=== PATIENT | male | born 1975 | race Caucasian/White ===

== ENCOUNTER 2017-05-08 06:39 | Emergency (ER) | payer OTHER ==
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
[2017-05-08] MEDS ORDERED: Mupirocin Oint 22 GM Tube TOP ONE (07:59)
== END 2017-05-08 08:13 | disposition home or self-care (01) ==
LOC: DL.ED 06:39
DX: S40.271A Other superficial bite of right shoulder, initial encounter (principal); Z88.0 Allergy status to penicillin; W50.3XXA Accidental bite by another person, initial encounter; Y92.89 Other specified places as the place of occurrence of the external cause
CPT/HCPCS: 86703; 86706; 86803; 99283; A9270; 36415